=== PATIENT | male | born 2000 | race Caucasian/White ===

== ENCOUNTER 2020-01-25 10:33 | Emergency (ER) | payer SELFPAY ==
[~2020-01-25] VITALS: Ht 157 cm; Wt 59.0 kg
[2020-01-25] MEDS ORDERED: AMOX500C2 PO (10:55)
[2020-01-25] MEDS ORDERED: PRD20T PO (10:55)
--- NOTE | 2020-01-25 10:58 | ED EENT ---
History of Present Illness General Chief Complaint: Oral/Throat Problems Stated Complaint: THROAT PAIN Source: patient Exam Limitations: no limitations History of Present Illness Date Seen by Provider: Jan 25, 2020 Time Seen by Provider: 10:48 Initial Comments To ER per private vehicle with a three-day history of sore throat. No fever no chills no cough no shortness of breath no abdominal pain. Timing/Duration: abrupt Severity: moderate Associated Symptoms: No facial pain/swelling, No fever; sore throat Allergies and Home Medications Patient Home Medication List Home Medication List Reviewed: Yes Review of Systems Review of Systems Constitutional: see HPI Eyes: No Symptoms Reported Ears: No Symptoms Reported Nose: no symptoms reported Mouth: no symptoms reported Throat: see HPI Respiratory: no symptoms reported Cardiovascular: no symptoms reported Musculoskeletal: no symptoms reported Past Qouqieu-Yaobys-Cjmubw Hx Patient Social History Recent Foreign Travel: No Contact w/Someone Who Travel: No Physical Exam Height, Weight, BMI Height: '" Weight: lbs. oz. kg; BMI Method: General Appearance: WD/WN, no apparent distress Eyes: bilateral eye normal inspection, bilateral eye PERRL, bilateral eye EOMI Ears: bilateral ear auricle normal, bilateral ear canal normal, bilateral ear TM normal Mouth/Throat: other (pharyngeal erythema without exudate) Neck: lymphadenopathy (R), lymphadenopathy (L) Respiratory: normal breath sounds, no respiratory distress, no accessory muscle use Neurologic/Psychiatric: alert, normal mood/affect, oriented x 3 Skin: normal color, warm/dry Progress/Results/Core Measures Results/Orders My Orders Orders - ALFONSO HARRIS APRN Rapid Strep A Screen (01/25/20 10:37) Influenza A And B Antigens (01/25/20 10:37) Departure Impression Primary Impression: Pharyngitis Qualified Codes: J02.9 - Acute pharyngitis, unspecified Disposition: HOME, SELF-CARE Condition: Stable Departure-Patient Inst. Decision time for Depature: 10:54 Referrals: UNKNOWN (PCP) Primary Care Physician Patient Instructions: Sore Throat in Adults Add. Discharge Instructions: 1. Tylenol and Motrin for pain and fever control 2. Antibiotics as directed 3. All discharge instructions reviewed with patient and/or family. Voiced understanding. Scripts Prednisone (Prednisone) 20 Mg Tab 40 MG PO DAILY, #6 TAB 0 Refills Prov: ALFONSO HARRIS APRN 01/25/20 Amoxicillin (Amoxicillin) 500 Mg Capsule 500 MG PO TID, #21 CAP 0 Refills Prov: ALFONSO HARRIS APRN 01/25/20 ALFONSO HARRIS APRN Jan 25, 2020 10:58
== END 2020-01-25 11:25 | disposition home or self-care (01) ==
LOC: ER 10:36
DX: J02.9 Acute pharyngitis, unspecified (principal)
CPT/HCPCS: 87430; 87804

== ENCOUNTER 2021-04-24 13:09 | Emergency (ER) | payer SELFPAY ==
[~2021-04-24] VITALS: Ht 170 cm; Wt 52.0 kg
[~2021-04-24 13:09] MED LIST: AMOX500C2 PO; PRD20T PO
--- NOTE | 2021-04-24 13:36 | ED Abdominal Pain ---
General Chief Complaint: Abdominal/GI Problems Stated Complaint: ABD PAIN Source of Information: Patient Exam Limitations: No Limitations (ALFONSO HARRIS APRN) History of Present Illness Date Seen by Provider: Apr 24, 2021 Time Seen by Provider: 13:35 Initial Comments To ER by private vehicle accompanied by his mother with reports of diffuse abdominal pain with nausea and vomiting for 3 days. No dysuria no diarrhea. No fever no chills. He had a similar episode 2 months ago but it went away on its own. Otherwise healthy takes no medications. Timing/Duration: 2-3 Days Severity/Quality: Moderate Location: Generalized Abdomen Radiation: No Radiation Activities at Onset: None Associated Symptoms: Nausea/Vomiting (ALFONSO HARRIS APRN) Allergies and Home Medications Allergies Coded Allergies: No Known Drug Allergies (Unverified , 04/24/21) Home Medications Amoxicillin 500 Mg Capsule, 500 MG PO TID Prescribed by: ALFONSO HARRIS on 01/25/20 1055 Dicyclomine HCl 20 Mg Tablet, 20 MG PO TID Prescribed by: ALFONSO HARRIS on 04/24/21 1734 Ondansetron 8 Mg Tab.rapdis, 8 MG PO Q6H PRN for NAUSEA/VOMITING Prescribed by: ALFONSO HARRIS on 04/24/21 1734 Prednisone 20 Mg Tab, 40 MG PO DAILY Prescribed by: ALFONSO HARRIS on 01/25/20 1055 Patient Home Medication List Home Medication List Reviewed: Yes (ALFONSO HARRIS APRN) Review of Systems Review of Systems Constitutional: see HPI EENTM: No Symptoms Reported Respiratory: No Symptoms Reported Cardiovascular: No Symptoms Reported Gastrointestinal: See HPI, Abdominal Pain, Nausea, Vomiting Genitourinary: No Symptoms Reported Musculoskeletal: no symptoms reported Skin: no symptoms reported Psychiatric/Neurological: No Symptoms Reported Endocrine: No Symptoms Reported Hematologic/Lymphatic: No Symptoms Reported (ALFONSO HARRIS APRN) Past Tgpufzs-Jptpwh-Mtscxr Hx Patient Social History Recent Hopitalizations: No (ALFONSO HARRIS APRN) Immunizations Up To Date PED Vaccines UTD: Yes (ALFONSO HARRIS APRN) Seasonal Allergies Seasonal Allergies: No (ALFONSO HARRIS APRN) Past Medical History Surgeries: No Respiratory: No Cardiac: No Neurological: No Genitourinary: No Gastrointestinal: No Musculoskeletal: No Endocrine: No HEENT: No Cancer: No Psychosocial: No Integumentary: No Blood Disorders: No (ALFONSO HARRIS APRN) Physical Exam Vital Signs Vital Signs - First Documented 04/24/21 13:24 Temp 36.7 Pulse 70 Resp 18 B/P (MAP) 132/81 (98) Pulse Ox 99 O2 Delivery Room Air (DELFINO RIVERS MD) Vital Signs Capillary Refill : (ALFONSO HARRIS APRN) Height/Weight/BMI Height: '" Weight: lbs. oz. kg; 23.00 BMI Method: General Appearance: WD/WN, no apparent distress, thin, other (No distress and he is without hypotension or tachycardia) HEENT: PERRL/EOMI, normal ENT inspection Neck: non-tender, full range of motion Respiratory: no respiratory distress, no accessory muscle use Gastrointestinal: normal bowel sounds, soft, tenderness (diffuse) Extremities: normal range of motion, non-tender Neurologic/Psychiatric: alert, normal mood/affect, oriented x 3 Skin: normal color, warm/dry (ALFONSO HARRIS APRN) Progress/Results/Core Measures Results/Orders Lab Results Laboratory Tests Test 04/24/21 13:35 Range/Units White Blood Count 4.8 4.3-11.0 10^3/uL Red Blood Count 5.72 H 4.30-5.52 10^6/uL Hemoglobin 17.4 13.3-17.7 g/dL Hematocrit 50 40-54 % Mean Corpuscular Volume 87 80-99 fL Mean Corpuscular Hemoglobin 30 25-34 pg Mean Corpuscular Hemoglobin Concent 35 32-36 g/dL Red Cell Distribution Width 12.2 10.0-14.5 % Platelet Count 209 130-400 10^3/uL Mean Platelet Volume 10.8 9.0-12.2 fL Immature Granulocyte % (Auto) 0 % Neutrophils (%) (Auto) 61 42-75 % Lymphocytes (%) (Auto) 27 12-44 % Monocytes (%) (Auto) 11 0-12 % Eosinophils (%) (Auto) 0 0-10 % Basophils (%) (Auto) 1 0-10 % Neutrophils # (Auto) 2.9 1.8-7.8 10^3/uL Lymphocytes # (Auto) 1.3 1.0-4.0 10^3/uL Monocytes # (Auto) 0.5 0.0-1.0 10^3/uL Eosinophils # (Auto) 0.0 0.0-0.3 10^3/uL Basophils # (Auto) 0.0 0.0-0.1 10^3/uL Immature Granulocyte # (Auto) 0.0 0.0-0.1 10^3/uL Urine Color YELLOW Urine Clarity CLEAR Urine pH 7.0 5-9 Urine Specific [place] 1.015 L 1.016-1.022 Urine Protein NEGATIVE NEGATIVE Urine Glucose (UA) NEGATIVE NEGATIVE Urine Ketones NEGATIVE NEGATIVE Urine Nitrite NEGATIVE NEGATIVE Urine Bilirubin NEGATIVE NEGATIVE Urine Urobilinogen 0.2 < = 1.0 MG/DL Urine Leukocyte Esterase NEGATIVE NEGATIVE Urine RBC (Auto) NEGATIVE NEGATIVE Urine RBC NONE /HPF Urine WBC NONE /HPF Urine Crystals PRESENT H /LPF Urine Amorphous Sediment RARE KANDY PHOSPHATE H /LPF Urine Bacteria NEGATIVE /HPF Urine Casts NONE /LPF Urine Mucus NEGATIVE /LPF Urine Culture Indicated NO Sodium Level 141 135-145 MMOL/L Potassium Level 4.2 3.6-5.0 MMOL/L Chloride Level 104 98-107 MMOL/L Carbon Dioxide Level 27 21-32 MMOL/L Anion Gap 10 5-14 MMOL/L Blood Urea Nitrogen 10 7-18 MG/DL Creatinine 0.87 0.60-1.30 MG/DL Estimat Glomerular Filtration Rate > 60 BUN/Creatinine Ratio 11 Glucose Level 89 70-105 MG/DL Calcium Level 9.8 8.5-10.1 MG/DL Corrected Calcium 8.5-10.1 MG/DL Total Bilirubin 0.9 0.1-1.0 MG/DL Aspartate Amino Transf (AST/SGOT) 19 5-34 U/L Alanine Aminotransferase (ALT/SGPT) 22 0-55 U/L Alkaline Phosphatase 64 40-136 U/L C-Reactive Protein High Sensitivity 0.02 0.00-0.50 MG/DL Total Protein 7.7 6.4-8.2 GM/DL Albumin 4.7 H 3.2-4.5 GM/DL Lipase 33 8-78 U/L (DELFINO RIVERS MD) Medications Given in ED Current Medications Medications Dose Ordered Sig/Bonita Route Start Time Stop Time Status Last Admin Dose Admin Al Hydrox/Mg Hydrox/Simethicone 30 ml ONCE ONCE PO 04/24/21 17:45 04/24/21 17:46 DC 04/24/21 17:46 30 ML Fentanyl Citrate 50 mcg ONCE ONCE IVP 04/24/21 15:30 04/24/21 15:31 DC 04/24/21 15:36 50 MCG Hyoscyamine Sulfate 0.25 mg ONCE ONCE PO 04/24/21 13:45 04/24/21 13:46 DC 04/24/21 13:50 0.25 MG Iohexol 100 ml ONCE ONCE IV 04/24/21 14:30 04/24/21 14:31 DC 04/24/21 15:05 79 ML Ketorolac Tromethamine 15 mg ONCE ONCE IVP 04/24/21 13:45 04/24/21 13:46 DC 04/24/21 13:51 15 MG Lidocaine HCl 15 ml ONCE ONCE PO 04/24/21 17:45 04/24/21 17:46 DC 04/24/21 17:46 15 ML Ondansetron HCl 8 mg ONCE ONCE IVP 04/24/21 13:45 04/24/21 13:46 DC 04/24/21 13:50 8 MG Sodium Chloride 100 ml ONCE ONCE IV 04/24/21 14:30 04/24/21 14:31 DC 04/24/21 15:05 80 ML (DELFINO RIVERS MD) Vital Signs/I&O 04/24/21 04/24/21 04/24/21 04/24/21 13:24 13:51 15:36 17:49 Temp 36.7 36.7 36.7 36.7 Pulse 70 72 Resp 18 18 B/P (MAP) 132/81 (98) 128/75 (98) Pulse Ox 99 100 O2 Delivery Room Air (DELFINO RIVERS MD) Diagnostic Imaging Diagonstic Imaging: Ultrasound Comments NAME: NEIL CAMACHON John [facility] REC#: [id number] PT STATUS: REG ER : 2000 PHYSICIAN: ALFONSO HARRIS APRN ADMIT DATE: 04/24/21/ER Draft Date of Exam:04/24/21 CT ABDOMEN/PELVIS W EXAMINATION: CT abdomen and pelvis with intravenous contrast. TECHNIQUE: Multiple contiguous axial images were obtained through the abdomen and pelvis after the uneventful administration of intravenous contrast. All CT scans use one or more of the following dose optimizing techniques: automated exposure control, MA and/or KvP adjustment based on patient size and exam type or iterative reconstruction. HISTORY: Diffuse abdominal pain. COMPARISON: None available. FINDINGS: The heart is unremarkable. The included lung bases are clear. The liver, spleen, pancreas, adrenal glands, and kidneys have a normal appearance. There is gallbladder wall thickening/edema. No radiopaque densities are seen within the gallbladder. There is no pathologically enlarged mesenteric or retroperitoneal adenopathy. The bowel loops are nondilated. The appendix is visualized in the right lower quadrant and has a normal appearance. There is no free fluid or free air. No acute osseous abnormalities. The urinary bladder is mildly distended. No bladder calculi. There is no free air, loculated collection, or adenopathy in the pelvis. IMPRESSION: 1. Gallbladder wall thickening and edema without obvious evidence of cholelithiasis. Recommend liver gallbladder ultrasound to further evaluate. 2. Normal appendix. No evidence of bowel obstruction. No free fluid or free air. Dictated on workstation # [id number] Dict: 04/24/21 1514 Trans: 04/24/21 1522 [facility] [id number] Interpreted by: FORTUNATO BOUCHER DO Electronically signed by: Time of Consult: 15:23 (ALFONSO HARRIS APRN) Departure Impression Primary Impression: Abdominal pain Disposition: 01 HOME, SELF-CARE Condition: Stable Departure-Patient Inst. Decision time for Depature: 17:32 (ALFONSO HARRIS APRN) Referrals: NO,LOCAL PHYSICIAN (PCP/Family) Primary Care Physician Patient Instructions: Nausea and Vomiting, Adult (DC) Add. Discharge Instructions: 1. medication as directed. Follow up with your doctor next week. Return to ER for any worseing All discharge instructions reviewed with patient and/or family. Voiced understanding. Scripts Dicyclomine HCl (Dicyclomine HCl) 20 Mg Tablet 20 MG PO TID, #20 TAB Prov: ALFONSO HARRIS APRN 04/24/21 Ondansetron (Ondansetron Odt) 8 Mg Tab.rapdis 8 MG PO Q6H PRN for NAUSEA/VOMITING, #10 TAB Prov: ALFONSO HARRIS APRN 04/24/21 Work/School Note: Work Release Form Date Seen in the Emergency Department: Apr 24, 2021 Return to Work: Apr 26, 2021 Attending physician note: I was physically present in the emergency department during the care of this patient as the attending physician on duty, but I was not directly involved in the care or decision-making for this patient. (DELFINO RIVERS MD) ALFONSO HARRIS APRN Apr 24, 2021 13:36 DELFINO RIVERS MD Apr 24, 2021 19:33
[2021-04-24] MEDS ORDERED: KETOROLAC 30 MG/ML VIAL IVP ONE (13:45)
[2021-04-24] MEDS ORDERED: HYOSCYAMINE 0.125 MG (LEVSIN) TAB PO ONE (13:45)
[2021-04-24] MEDS ORDERED: ONDANSETRON 4 MG/2 ML (SDV) Z0FRAN IVP ONE (13:45)
[2021-04-24] MEDS ORDERED: NS IV 1000 ML 1,000 ML IV SCH (13:45)
[2021-04-24 13:52] LABS: BASOPHILS % (AUTO) 1 % (0-10); EOSINOPHILS % (AUTO) 0 % (0-10); HEMATOCRIT 50 % (40-54); HEMOGLOBIN 17.4 g/dL (13.3-17.7); LYMPHOCYTES # (AUTO) 1.3 10^3/uL (1.0-4.0); LYMPHOCYTES % (AUTO) 27 % (12-44); MEAN CORPUSCULAR HEMOGLOBIN 30 pg (25-34); MEAN CORPUSCULAR HGB CONC 35 g/dL (32-36); MEAN CORPUSCULAR VOLUME 87 fL (80-99); MEAN PLATELET VOLUME 10.8 fL (9.0-12.2); MONOCYTES # (AUTO) 0.5 10^3/uL (0.0-1.0); MONOCYTES % (AUTO) 11 % (0-12); NEUTROPHILS # (AUTO) 2.9 10^3/uL (1.8-7.8); NEUTROPHILS % (AUTO) 61 % (42-75); PLATELET COUNT 209 10^3/uL (130-400); WHITE BLOOD COUNT 4.8 10^3/uL (4.3-11.0)
[2021-04-24 13:53] LABS: BILIRUBIN,URINE NEGATIVE (NEGATIVE); CLARITY,URINE CLEAR; COLOR,URINE YELLOW; GLUCOSE, URINE (UA) NEGATIVE (NEGATIVE); KETONES,URINE NEGATIVE (NEGATIVE); LEUKOCYTE ESTERASE ,URINE NEGATIVE (NEGATIVE); NITRITE,URINE NEGATIVE (NEGATIVE); PROTEIN,URINE NEGATIVE (NEGATIVE)
[2021-04-24 14:02] LABS: ALBUMIN 4.7 GM/DL (3.2-4.5); CHLORIDE 104 MMOL/L (98-107); POTASSIUM 4.2 MMOL/L (3.6-5.0); SODIUM 141 MMOL/L (135-145)
[2021-04-24 14:03] LABS: CALCIUM 9.8 MG/DL (8.5-10.1)
[2021-04-24 14:04] LABS: AMORPHOUS SEDIMENT,UR RARE AMOR PHOSPHATE /LPF; BACTERIA,URINE NEGATIVE /HPF; GLUCOSE 89 MG/DL (70-105)
[2021-04-24 14:05] LABS: TOTAL PROTEIN 7.7 GM/DL (6.4-8.2)
[2021-04-24 14:06] LABS: BILIRUBIN,TOTAL 0.9 MG/DL (0.1-1.0); CARBON DIOXIDE 27 MMOL/L (21-32)
[2021-04-24 14:08] LABS: ALKALINE PHOSPHATASE 64 U/L (40-136); CREATININE SERUM 0.87 MG/DL (0.60-1.30); GFR ESTIMATED > 60
[2021-04-24 14:09] LABS: BUN/CREATININE RATIO 11
[2021-04-24 14:11] LABS: ALANINE AMINOTRANSFERASE 22 U/L (0-55); LIPASE 33 U/L (8-78)
[2021-04-24] MEDS ORDERED: HOLD METFORMIN - RECEIVED CONTRAST 20 ML VIAL IV SCH (14:30)
[2021-04-24] MEDS ORDERED: NS 100 ML (IVPB) BAG IV ONE (14:30)
[2021-04-24] MEDS ORDERED: CATHETER FLUSH 10 ML SYR IV PRN (14:30)
[2021-04-24] MEDS ORDERED: IOHEXOL 350 MG/ML 100 ML (OMNIPAQUE 350) VIAL IV ONE (14:30)
--- NOTE | 2021-04-24 15:22 | Diagnostic Imaging Report ---
EXAMINATION: CT abdomen and pelvis with intravenous contrast. TECHNIQUE: Multiple contiguous axial images were obtained through the abdomen and pelvis after the uneventful administration of intravenous contrast. All CT scans use one or more of the following dose optimizing techniques: automated exposure control, MA and/or KvP adjustment based on patient size and exam type or iterative reconstruction. HISTORY: Diffuse abdominal pain. COMPARISON: None available. FINDINGS: The heart is unremarkable. The included lung bases are clear. The liver, spleen, pancreas, adrenal glands, and kidneys have a normal appearance. There is gallbladder wall thickening/edema. No radiopaque densities are seen within the gallbladder. There is no pathologically enlarged mesenteric or retroperitoneal adenopathy. The bowel loops are nondilated. The appendix is visualized in the right lower quadrant and has a normal appearance. There is no free fluid or free air. No acute osseous abnormalities. The urinary bladder is mildly distended. No bladder calculi. There is no free air, loculated collection, or adenopathy in the pelvis. IMPRESSION: 1. Gallbladder wall thickening and edema without obvious evidence of cholelithiasis. Recommend liver gallbladder ultrasound to further evaluate. 2. Normal appendix. No evidence of bowel obstruction. No free fluid or free air. Dictated by: Dictated on workstation # [id number]
[2021-04-24] MEDS ORDERED: fentaNYL INJ 100 MCG/2 ML AMP IVP ONE (15:30)
[2021-04-24] MEDS ORDERED: DICY20TA10 PO (17:34)
[2021-04-24] MEDS ORDERED: ONDA8TAB13 PO (17:34)
--- NOTE | 2021-04-24 17:43 | Diagnostic Imaging Report ---
PROCEDURE: US Gallbladder. TECHNIQUE: Multiple real-time grayscale images were obtained over the right upper quadrant in various projections. INDICATION: Right upper quadrant pain. Abnormal CT. COMPARISON: CT abdomen and pelvis with IV contrast 04/24/2021. FINDINGS: Normal echogenicity of the liver with no focal mass or fluid collection. Normal hepatopedal flow in the main portal vein. No thickening of the gallbladder wall which measures 0.3 cm. The common bile duct measures 0.3 cm. No cholelithiasis. No pericholecystic fluid. Negative sonographic Puri sign. Normal echogenicity of the pancreas. The proximal aorta and IVC are patent and normal in caliber. Right kidney measures 9.3 cm. No right renal mass, cyst, shadowing stone or hydronephrosis. No free fluid in the visualized abdomen. IMPRESSION: Normal right upper quadrant ultrasound. Specifically, the gallbladder wall thickening and edema is not reproduced on this exam. If there remains concern for cholecystitis, nuclear medicine HIDA scan could be performed. Dictated by: Dictated on workstation # [id number]
[2021-04-24] MEDS ORDERED: ANTACID SUSP 30 ML UDC (MYLANTA) PO ONE (17:45)
[2021-04-24] MEDS ORDERED: LIDOCAINE 2% VISCOUS 15 ML UDC PO ONE (17:45)
[2021-04-24 17:49] VITALS: BP 128/75
== END 2021-04-24 17:50 | disposition home or self-care (01) ==
LOC: EDUNIT# 13:09 → ER 13:10
DX: R10.84 Generalized abdominal pain (principal); Z79.52 Long term (current) use of systemic steroids
CPT/HCPCS: 36415; 74177; 76705; 80053; 81000; 83690; 85025; 86141

== ENCOUNTER 2021-07-17 14:13 | Emergency (ER) | payer OTHER ==
[~2021-07-17] VITALS: Ht 167.7 cm; Wt 54.4 kg
[~2021-07-17 14:13] MED LIST changes: +DICY20TA10 PO; +ONDA8TAB13 PO
[2021-07-17] MEDS ORDERED: NS IV 1000 ML 1,000 ML IV SCH (14:30)
[2021-07-17] MEDS ORDERED: ANTACID SUSP 30 ML UDC (MYLANTA) PO ONE (14:30)
[2021-07-17] MEDS ORDERED: ONDANSETRON 4 MG/2 ML (SDV) Z0FRAN IVP ONE (14:30)
[2021-07-17] MEDS ORDERED: LIDOCAINE 2% VISCOUS 15 ML UDC PO ONE (14:30)
--- NOTE | 2021-07-17 14:35 | ED Abdominal Pain ---
General Chief Complaint: Abdominal/GI Problems Stated Complaint: ABD PAIN,N/V Nursing Triage Note: PT AMB TO RM 4 WITH COMPLAINT OF ABD PAIN, N/V. Source of Information: Patient Exam Limitations: No Limitations History of Present Illness Date Seen by Provider: Jul 17, 2021 Time Seen by Provider: 14:29 Initial Comments To ER by private vehicle with reports of persistent nausea and vomiting causing him to lose weight. He states that eating anything or drinking even water causes him to become nauseated and vomit. He reports some discomfort in the upper abdomen. I saw him on 04/28 and we did labs with a CT scan. The CT showed questionable gallbladder wall thickening. I follow that with an ultrasound which was unremarkable. There was no redemonstrated wall thickening. He also had a previous episode of nausea vomiting and epigastric pain in January of this year. He has not yet followed up with primary care. No fevers chills or diarrhea. Timing/Duration: Getting Worse, Intermittent Severity/Quality: Cramping Location: Epigastric Radiation: No Radiation Activities at Onset: None Associated Symptoms: Nausea/Vomiting Allergies and Home Medications Allergies Coded Allergies: No Known Drug Allergies (Unverified , 04/24/21) Patient Home Medication List Home Medication List Reviewed: Yes Amoxicillin (Amoxicillin) 500 Mg Capsule, 500 MG PO TID Prescribed by: ALFONSO HARRIS on 01/25/20 1055 Dicyclomine HCl (Dicyclomine HCl) 20 Mg Tablet, 20 MG PO TID Prescribed by: ALFONSO HARRIS on 04/24/21 1734 Ondansetron (Ondansetron Odt) 8 Mg Tab.rapdis, 8 MG PO Q6H PRN for NAUSEA/VOMITING Prescribed by: ALFONSO HARRIS on 04/24/21 1734 Prednisone (Prednisone) 20 Mg Tab, 40 MG PO DAILY Prescribed by: ALFONSO HARRIS on 01/25/20 1055 Review of Systems Review of Systems Constitutional: see HPI EENTM: No Symptoms Reported Respiratory: No Symptoms Reported Cardiovascular: No Symptoms Reported Gastrointestinal: See HPI, Abdominal Pain, Nausea Genitourinary: No Symptoms Reported Musculoskeletal: no symptoms reported Skin: no symptoms reported Psychiatric/Neurological: No Symptoms Reported Endocrine: No Symptoms Reported Hematologic/Lymphatic: No Symptoms Reported Past [place]-Nhmsth-Lvzxns Hx Patient Social History Tobacco Use?: No Use of E-Cig and/or Vaping dev: No Substance use?: No Alcohol Use?: No Pt feels they are or have been: No Immunizations Up To Date PED Vaccines UTD: Yes Seasonal Allergies Seasonal Allergies: No Past Medical History Surgeries: No Respiratory: No Cardiac: No Neurological: No Genitourinary: No Gastrointestinal: No Musculoskeletal: No Endocrine: No HEENT: No Cancer: No Psychosocial: No Integumentary: No Blood Disorders: No Physical Exam Vital Signs Vital Signs - First Documented 07/17/21 14:17 Temp 36.5 Pulse 73 Resp 19 B/P (MAP) 124/86 (99) Pulse Ox 73 O2 Delivery Room Air Capillary Refill : Height/Weight/BMI Height: '" Weight: lbs. oz. kg; 19.00 BMI Method: General Appearance: WD/WN, no apparent distress, thin HEENT: PERRL/EOMI, normal ENT inspection Respiratory: no respiratory distress, no accessory muscle use Gastrointestinal: normal bowel sounds, soft, tenderness (Epigastric tenderness) Extremities: normal range of motion, non-tender Neurologic/Psychiatric: alert, normal mood/affect, oriented x 3 Skin: normal color, warm/dry Progress/Results/Core Measures Results/Orders Lab Results Laboratory Tests Test 07/17/21 14:30 07/17/21 14:58 Range/Units White Blood Count 4.7 4.3-11.0 10^3/uL Red Blood Count 5.29 4.30-5.52 10^6/uL Hemoglobin 16.1 13.3-17.7 g/dL Hematocrit 45 40-54 % Mean Corpuscular Volume 85 80-99 fL Mean Corpuscular Hemoglobin 30 25-34 pg Mean Corpuscular Hemoglobin Concent 36 32-36 g/dL Red Cell Distribution Width 12.3 10.0-14.5 % Platelet Count 194 130-400 10^3/uL Mean Platelet Volume 10.5 9.0-12.2 fL Immature Granulocyte % (Auto) 0 % Neutrophils (%) (Auto) 68 42-75 % Lymphocytes (%) (Auto) 22 12-44 % Monocytes (%) (Auto) 9 0-12 % Eosinophils (%) (Auto) 0 0-10 % Basophils (%) (Auto) 1 0-10 % Neutrophils # (Auto) 3.2 1.8-7.8 X 10^3 Lymphocytes # (Auto) 1.0 1.0-4.0 X 10^3 Monocytes # (Auto) 0.4 0.0-1.0 X 10^3 Eosinophils # (Auto) 0.0 0.0-0.3 10^3/uL Basophils # (Auto) 0.1 0.0-0.1 10^3/uL Immature Granulocyte # (Auto) 0.0 0.0-0.1 10^3/uL Sodium Level 139 135-145 MMOL/L Potassium Level 4.1 3.6-5.0 MMOL/L Chloride Level 105 98-107 MMOL/L Carbon Dioxide Level 24 21-32 MMOL/L Anion Gap 10 5-14 MMOL/L Blood Urea Nitrogen 9 7-18 MG/DL Creatinine 0.89 0.60-1.30 MG/DL Estimat Glomerular Filtration Rate 109 BUN/Creatinine Ratio 10 Glucose Level 98 70-105 MG/DL Calcium Level 9.6 8.5-10.1 MG/DL Corrected Calcium 9.3 8.5-10.1 MG/DL Total Bilirubin 1.3 H 0.1-1.0 MG/DL Aspartate Amino Transf (AST/SGOT) 22 5-34 U/L Alanine Aminotransferase (ALT/SGPT) 21 0-55 U/L Alkaline Phosphatase 58 40-136 U/L C-Reactive Protein High Sensitivity 0.03 0.00-0.50 MG/DL Total Protein 7.2 6.4-8.2 GM/DL Albumin 4.4 3.2-4.5 GM/DL Lipase 40 8-78 U/L Urine Color YELLOW Urine Clarity CLEAR Urine pH 7.5 5-9 Urine Specific [place] 1.010 L 1.016-1.022 Urine Protein NEGATIVE NEGATIVE Urine Glucose (UA) NEGATIVE NEGATIVE Urine Ketones NEGATIVE NEGATIVE Urine Nitrite NEGATIVE NEGATIVE Urine Bilirubin NEGATIVE NEGATIVE Urine Urobilinogen 0.2 < = 1.0 MG/DL Urine Leukocyte Esterase NEGATIVE NEGATIVE Urine RBC (Auto) NEGATIVE NEGATIVE Urine RBC NONE /HPF Urine WBC NONE /HPF Urine Crystals NONE /LPF Urine Bacteria NEGATIVE /HPF Urine Casts NONE /LPF Urine Mucus NEGATIVE /LPF Urine Culture Indicated NO Urine Opiates Screen NEGATIVE NEGATIVE Urine Oxycodone Screen NEGATIVE NEGATIVE Urine Methadone Screen NEGATIVE NEGATIVE Urine Propoxyphene Screen NEGATIVE NEGATIVE Urine Barbiturates Screen NEGATIVE NEGATIVE Ur Tricyclic Antidepressants Screen NEGATIVE NEGATIVE Urine Phencyclidine Screen NEGATIVE NEGATIVE Urine Amphetamines Screen NEGATIVE NEGATIVE Urine Methamphetamines Screen NEGATIVE NEGATIVE Urine Benzodiazepines Screen NEGATIVE NEGATIVE Urine Cocaine Screen NEGATIVE NEGATIVE Urine Cannabinoids Screen NEGATIVE NEGATIVE My Orders Orders - ALFONSO HARRIS APRN Cbc With Automated Diff (07/17/21 14:21) Comprehensive Metabolic Panel (07/17/21 14:21) Ua Culture If Indicated (07/17/21 14:21) Drug Screen Stat (Urine) (07/17/21 14:21) Ed Iv/Invasive Line Start (07/17/21 14:21) Lipase (07/17/21 14:21) Ed Iv/Invasive Line Start (07/17/21 14:21) Hs C Reactive Protein (07/17/21 14:21) Ns Iv 1000 Ml (Sodium Chloride 0.9%) (07/17/21 14:30) Ondansetron Injection (Zofran Injectio (07/17/21 14:30) Antacid Suspension (Mylanta Suspension (07/17/21 14:30) Lidocaine 2% Viscous 15 Ml (Xylocaine Vi (07/17/21 14:30) Us Gallbladder [id number] (07/17/21 15:04) Us Gallbladder [id number] (07/17/21 15:04) Medications Given in ED Current Medications Medications Dose Ordered Sig/Bonita Route Start Time Stop Time Status Last Admin Dose Admin Al Hydrox/Mg Hydrox/Simethicone 30 ml ONCE ONCE PO 07/17/21 14:30 07/17/21 14:31 DC 07/17/21 14:36 30 ML Lidocaine HCl 15 ml ONCE ONCE PO 07/17/21 14:30 07/17/21 14:31 DC 07/17/21 14:36 15 ML Ondansetron HCl 8 mg ONCE ONCE IVP 07/17/21 14:30 07/17/21 14:31 DC 07/17/21 14:36 8 MG Vital Signs/I&O 07/17/21 14:17 Temp 36.5 Pulse 73 Resp 19 B/P (MAP) 124/86 (99) Pulse Ox 73 O2 Delivery Room Air Blood Pressure Mean: 99 Departure Communication (Admissions) He has not had a HIDA scan. Impression Primary Impression: Biliary dyskinesia Disposition: 01 HOME, SELF-CARE Condition: Stable Departure-Patient Inst. Decision time for Depature: 15:34 Referrals: LOU PELAEZ BRETT D DO NO,LOCAL PHYSICIAN (PCP) Primary Care Physician Patient Instructions: Gallbladder Diet Add. Discharge Instructions: 1. Follow-up with Dr. Pelaez next 07/22/2021 at 11 AM for further evaluation and treatment of this ongoing pain likely related to your gallbladder. Scripts Dicyclomine HCl (Dicyclomine HCl) 20 Mg Tablet 20 MG PO QID, #40 TAB Prov: ALFONSO HARRIS APRN 07/17/21 Ondansetron (Ondansetron Odt) 8 Mg Tab.rapdis 8 MG PO Q6H PRN for NAUSEA-1ST LINE, #20 TAB Prov: ALFONSO HARRIS APRN 07/17/21 Copy Copies To 1: LOU PELAEZ PETER J APRN Jul 17, 2021 14:35
[2021-07-17 14:40] LABS: BASOPHILS # (AUTO) 0.1 10^3/uL (0.0-0.1); BASOPHILS % (AUTO) 1 % (0-10); EOSINOPHILS % (AUTO) 0 % (0-10); HEMATOCRIT 45 % (40-54); HEMOGLOBIN 16.1 g/dL (13.3-17.7); LYMPHOCYTES % (AUTO) 22 % (12-44); MEAN CORPUSCULAR HEMOGLOBIN 30 pg (25-34); MEAN CORPUSCULAR HGB CONC 36 g/dL (32-36); MEAN CORPUSCULAR VOLUME 85 fL (80-99); MEAN PLATELET VOLUME 10.5 fL (9.0-12.2); MONOCYTES # (AUTO) 0.4 X 10^3 (0.0-1.0); MONOCYTES % (AUTO) 9 % (0-12); NEUTROPHILS # (AUTO) 3.2 X 10^3 (1.8-7.8); NEUTROPHILS % (AUTO) 68 % (42-75); PLATELET COUNT 194 10^3/uL (130-400); WHITE BLOOD COUNT 4.7 10^3/uL (4.3-11.0)
[2021-07-17 14:45] LABS: ALBUMIN 4.4 GM/DL (3.2-4.5); POTASSIUM 4.1 MMOL/L (3.6-5.0)
[2021-07-17 14:46] LABS: CALCIUM 9.6 MG/DL (8.5-10.1)
[2021-07-17 14:47] LABS: TOTAL PROTEIN 7.2 GM/DL (6.4-8.2)
[2021-07-17 14:49] LABS: BILIRUBIN,TOTAL 1.3 MG/DL (0.1-1.0)
[2021-07-17 14:51] LABS: CREATININE SERUM 0.89 MG/DL (0.60-1.30)
[2021-07-17 15:10] LABS: BILIRUBIN,URINE NEGATIVE (NEGATIVE); CLARITY,URINE CLEAR; COLOR,URINE YELLOW; GLUCOSE, URINE (UA) NEGATIVE (NEGATIVE); KETONES,URINE NEGATIVE (NEGATIVE); LEUKOCYTE ESTERASE ,URINE NEGATIVE (NEGATIVE); NITRITE,URINE NEGATIVE (NEGATIVE); PH,URINE 7.5 (5-9); PROTEIN,URINE NEGATIVE (NEGATIVE)
[2021-07-17 15:18] LABS: BACTERIA,URINE NEGATIVE /HPF
[2021-07-17 15:21] LABS: AMPHETAMINE SCREEN, URINE NEGATIVE (NEGATIVE); BARBITURATE SCREEN URINE NEGATIVE (NEGATIVE); BENZODIAZEPINES SCREEN URINE NEGATIVE (NEGATIVE); CANNABINOID SCREEN, URINE NEGATIVE (NEGATIVE); COCAINE SCREEN URINE NEGATIVE (NEGATIVE); METHADONE STAT NEGATIVE (NEGATIVE); METHAMPHETAMINE SCREEN URINE S NEGATIVE (NEGATIVE); OPIATE SCREEN URINE NEGATIVE (NEGATIVE); OXYCODONE STAT NEGATIVE (NEGATIVE); PROPOXYPHENE STAT NEGATIVE (NEGATIVE); TRICYCLIC ANTIDEPRESSANTS SCRE NEGATIVE (NEGATIVE)
[2021-07-17] MEDS ORDERED: ONDA8TAB13 PO (15:37)
[2021-07-17] MEDS ORDERED: DICY20TA10 PO (15:37)
[2021-07-17 16:07] VITALS: BP 124/76
--- NOTE | 2021-07-17 16:19 | Diagnostic Imaging Report ---
EXAMINATION: US Abdomen limited. TECHNIQUE: Multiple real-time grayscale images were obtained over the right upper quadrant in various projections. HISTORY: Right upper quadrant pain. COMPARISON: None available. FINDINGS: The liver is normal in size. The liver is normal in echogenicity. No focal lesion is seen. The portal vein is patent with hepatopedal flow. Gallbladder is normal without wall thickening or pericholecystic fluid. Sonographic Puri sign is negative. Common duct measures 4 mm. There is no biliary ductal dilation. The visualized portions of the pancreas are normal. The right kidney is normal without hydronephrosis. IMPRESSION: Unremarkable right upper quadrant ultrasound. Dictated by: Dictated on workstation # [id number]
== END 2021-07-17 16:07 | disposition home or self-care (01) ==
LOC: EDUNIT# 14:13 → ER 14:15
DX: K82.8 Other specified diseases of gallbladder (principal); Z79.52 Long term (current) use of systemic steroids
CPT/HCPCS: 36415; 76705; 80053; 80306; 81000; 83690; 85025; 86141

== ENCOUNTER 2021-08-07 05:30 | Outpatient (RCR) | payer OTHER ==
[~2021-08-07] VITALS: Ht 165 cm; Wt 44.8 kg
== END 2021-08-11 08:50 | disposition home or self-care (01) ==
LOC: PREOP 05:30
PROVIDERS: ATTEND Surgery
DX: Z01.818 Encounter for other preprocedural examination (principal)

== ENCOUNTER 2021-08-11 08:14 | Day surgery (SDC) | payer OTHER ==
[~2021-08-11] VITALS: Ht 165 cm; Wt 44.8 kg
[2021-08-11] MEDS ORDERED: LACTATED RINGERS 1,000 ML IV STA ×2 (08:34→08:42)
[2021-08-11] MEDS ORDERED: LACTATED RINGERS 1,000 ML IV ONE (08:35)
[2021-08-11] MEDS ORDERED: HURRICAINE EXT TUBE (BENZOCAINE) XX PRN (08:45)
[2021-08-11 08:47] VITALS: BP 119/90
--- NOTE | 2021-08-11 09:31 | Progress Note-Pre Operative ---
Pre-Operative Progress Note H&P Reviewed The H&P was reviewed, patient examined and no changes noted. Time Seen by Provider: :29 Date H&P Reviewed: Aug 11, 2021 Time H&P Reviewed: :29 Pre-Operative Diagnosis: RUQ pain, GERD LOU VILLASENOR DO Aug 11, 2021 09:31
[2021-08-11] MEDS ORDERED: MIDAZOLAM 2 MG/2 ML (VERSED) VIAL ONE (10:47)
[2021-08-11] MEDS ORDERED: proPOfol 200 MG/20 ML (DIPRIVAN) VIAL IV ONE (10:47)
--- NOTE | 2021-08-11 10:59 | Progress Note-Post Operative ---
Post-Operative Progess Note Surgeon (s)/Fire Apparatus Engineer (s) Surgeon LOU VILLASENOR DO Fire Apparatus Engineer: none Pre-Operative Diagnosis RUQ pain, GERD Post-Operative Diagnosis Gastritis Esophagitis Hiatal hernia Procedure & Operative Findings Date of Procedure 08/11/21 Procedure Performed/Findings EGD with bx PROCEDURE NOTE: After informed consent was obtained, the patient was brought to the endoscopy suite, placed in bed in left lateral decubitus position. He was administered IV sedation by the HIDE DYER who then monitored vitals the entire time, heart rate, blood pressure and pulse ox and the scope was inserted down the mouth through the esophagus into the stomach. On the way down, noted some mild esophagitis, took a picture, pushed into the stomach noted some gastritis, pushed past the antrum into the duodenum. Duodenum looked good. Pulled back and did a biopsy of the antrum, then retroflexed the scope, saw a small hiatal hernia, took a picture of this and then pulled the scope into the GE junction, took another picture of the hiatal hernia and then did a biopsy of the GE junction. Pushed the scope back into the stomach, suctioned all the air out of the stomach. At this point pulled the scope up the esophagus and out the mouth. The patient tolerated the procedure, and he recovered in endoscopy suite. Anesthesia Type IV sedation by HIDE DYER Estimated Blood Loss Estimated blood loss (mL): scant Specimens/Packing Specimens Removed antral bx body of stomach bx GE jxn bx LUO VILLASENOR DO Aug 11, 2021 10:59
[2021-08-11 11:00] VITALS: BP 106/59
--- NOTE | 2021-08-11 11:00 | Endoscopy Discharge Instruct ---
Endo Procedure/Findings Findings 1.: Gastritis 2.: Hiatal Hernia 3.: Other Findings (esophagitis) Discharge Instructions - Activity: You might feel a little sleepy until tomorrow. This is due to the medicine you received to relax you. Until tomorrow, you should: NOT drive a car, operate machinery or power tools. NOT drink any alcoholic beverages. NOT make any important decisions or sign importortant papers. Do not return to work until tomorrow, unless otherwise instructed. Resume previous activities tomorrow. Diet: Start by taking liquids. If you tolerate liquids, advance to solid food. 1.: EGD in 1 year Notify Physician - If you experience excessive bleeding, unusual abdominal pain, fever, or chest pain, contact your doctor immediately. LOU VILLASENOR DO Aug 11, 2021 11:00
[2021-08-11 11:05] VITALS: BP 104/56
[2021-08-11 11:10] VITALS: BP 104/56
[2021-08-11 11:40] VITALS: BP 110/73
[2021-08-11 11:48] VITALS: BP 110/73
--- NOTE | 2021-08-11 12:53 | Anesthesia-General Post-Op ---
MAC Patient Condition Mental Status/LOC: Same as Preop Cardiovascular: Satisfactory Nausea/Vomiting: Absent Respiratory: Satisfactory Pain: Controlled Complications: Absent Post Op Complications Complications None Follow Up Care/Instructions Patient Instructions None needed. Anesthesiology Discharge Order Discharge Order Patient is doing well, no complaints, stable vital signs, no apparent adverse anesthesia problems. No complications reported per nursing. REJI SALMERON CRNA Aug 11, 2021 12:53
== END 2021-08-11 11:48 | disposition home or self-care (01) ==
LOC: ENDO 08:14
PROVIDERS: ATTEND Surgery
DX: K29.50 Unspecified chronic gastritis without bleeding (principal); K21.00 Gastro-esophageal reflux disease with esophagitis, without bleeding; K44.9 Diaphragmatic hernia without obstruction or gangrene